=== PATIENT | female | born 1965 | race Caucasian/White ===

== ENCOUNTER 2018-12-20 10:35 | Observation (INO) | payer OTHER ==
[~2018-12-20] VITALS: Ht 157.5 cm; Wt 90.9 kg
--- NOTE | ~2018-12-20 | HEMODYNAMI ---
PATIENT:REGINE JEFFERSON MEDICAL RECORD: [id number] : 67 [facility]# [id number] ADMISSION DATE: 12/20/18 Generatedon:12/20/201815:59 Patient name: REGINE JEFFERSON Patient #: [id number] SSN: D OB: 1965 Date of study: 12/20/2018 Page: Of Hemodynamic Procedure Report Patient Data Patient Demographics Procedure consent was obtained First Name: REGINE Gender: Female Last Name: RONNY : 1965 Middle Initial: MARIA EUGENIA Age: 53 year(s) Patient #: [id number] Race: Unknown Additional ID: [id number] Contact details Address: [address] [place] [address] State: [place]: [facility] [place] Zip code: [address] Past Medical History Allergies Allergen Reaction Date Comments Reported Other allergy 12/20/2018 Doxycycline, detorolac, levofloxacin Admission Admission Data Admission Date: 12/20/2018 Admission Time: 13:02 Room #: D.E16 Height (in.): 62 BSA: 1.91 (m2) Height (cm.): 157.48 BMI: 36.65 (kg/m2) Weight (lbs.): 200.4 Weight (kg.): 90.9 Lab Results Lab Result Date: 12/20/2018 Lab Result Time: 0:00 Biochemistry Name Units Result Min Max BUN mg/dl 11 --(-*--)-- 7 18 Creatinine mg/dl 0.6 --(*---)-- 0.6 1.3 CBC Name Units Result Min Max Hemoglobin g/dl 14.7 --(-*--)-- 13.5 17.5 Procedure Procedure Types Cath Procedure Diagnostic Procedure [facility] w/Coronaries Procedure Description Procedure Date Procedure Date: 12/20/2018 Procedure Start Time: 15:47 Procedure End Time: 15:58 Procedure Staff Name Function Aric Darden MD Performing Physician Mandy Pierson RT Monitor Kelli Chen RN Nurse Elise Dominique RT Scrub Sruthi Bello RT Scrub Dk Craven RN Lapel Baster Procedure Data Cath Procedure Fluoroscopy Diagnostic fluoroscopy Total fluoroscopy Time: 1.5 time: 1.5 min min Diagnostic fluoroscopy Total fluoroscopy dose: 454 dose: 454 mGy mGy Contrast Material Contrast Material Type Amount (ml) Isovue 300 61 Entry Location Entry Primary Successful Side Size Upsize Upsize Entry Closure [place] ccessful Closure Location (Fr) 1 (Fr) 2 (Fr) Remarks Device Remarks Radial Right 6 Fr Mechanical artery Short Compression Estimated blood loss: 10 ml Diagnostic catheters Device Type Used For End Catheter Placement DIAGNOSTIC Fowler 110cm 5 Procedure Fr catheter ([id number]) Procedure Complications No complications Procedure Medications Medication Administration Route Dosage Oxygen etCO2 Nasal cannula 2 l/min Lidocaine 2% added to field 20 Heparin Flush Bag added to field 2 bags (1000units/500ml NS) 0.9% NaCl I.V. 100 ml/hr Radial Cocktail added to field 1 syringe (Verapomil 2mg/Nitro 400mcg/Heparin 1500units) Versed I.V. 2 mg Fentanyl I.V. 100 mcg Versed I.V. 1 mg Fentanyl I.V. 50 mcg Hemodynamics Rest BSA: 1.91 (m2) HGB: 14.7 (g/dl) O2 Consumption: Estimated: 182.95 (ml/min) O2 Co nsumption indexed: Estimated:95.79 (ml/min/m) Heart Rate: 66 (bpm) Snapshots Pre Cath Intra NCS Post Cath Vital Signs Time Heart Resp SPO2 etCO2 NIBP (mmHg) Rhythm Pain Sedation Rate (ipm) (%) (mmHg) Status Level (bpm) 15:38:10 68 14 100 37.1 148/98(123) NSR 0 (11) 10(A) , No pain 15:42:18 69 15 99 40.9 141/94(108) NSR 0 (11) 10(A) , No pain 15:46:24 75 13 98 43.2 141/92(105) NSR 0 (11) 9(A) , No pain 15:50:34 81 12 93 135/80(103) NSR 0 (11) 9(A) , No pain 15:54:40 79 14 96 134/85(98) NSR 0 (11) 10(A) , No pain Medications Time Medication Route Dose Verified Delivered Reason Notes Effectiveness by by 15:32:50 Oxygen etCO2 2 l/min Aricray Root used for Nasal Adelso Craven RN procedure cannula 15:43:55 Lidocaine 2% added 20ml Aric Corbett for local to vial Adelso Darden MD anesthetic field 15:44:02 Heparin Flush added 2 bags Aric Corbett used for Bag to Adelso Darden MD procedure (1000units/500ml field NS) 15:44:14 0.9% NaCl I.V. 100 Aric Root Per ml/hr Adelso Craven RN physician 15:44:29 Radial Cocktail added 1 Aric Corbett for (Verapomil to syringe Adelso Darden MD vasodilation 2mg/Nitro field 400mcg/Heparin 1500units) 15:44:37 Versed I.V. 2 mg Aric Presleyie for sedation Adelso Craven RN 15:44:43 Fentanyl I.V. 100 mcg Aric Root for sedation Adelso Craven RN 15:49:52 Versed I.V. 1 mg Aric Root for sedation Adelso Craven RN 15:49:56 Fentanyl I.V. 50 mcg Aric Root for sedation Adelso Craven RN Procedure Log Time Note 15:11:55 Lab Result : BUN 11 mg/dl 15:11:55 Lab Result : Hemoglobin 14.7 g/dl 15:11:55 Lab Result : Creatinine 0.6 mg/dl 15:16:24 Patient Height : 62 inches 15:16:31 Patient Weight : 200.4 lbs 15:16:56 Diagnostic Cath status Elective 15:17:15 Mandy STRICKLAND(R) sent for patient. Start room use. 15:17:24 Time tracking: Regular hours (M-F 7:00 - 5:00) 15:17:30 Plan of Care:Hemodynamics will remain stable., Cardiac rhythm will remain stable., Comfort level will be maintained., Respiratory function will remain adequate., Patient/ family verbilizes understanding of procedure., Procedure tolerated without complication., Recovers from procedure without complications.. 15:23:01 Patient received from ED to CCL 2 Alert and oriented. Tansferred to table in Supine position. 15:23:03 Warm blankets applied, and jurgen hugger turned on for patient comfort. 15:23:03 Correct patient and procedure confirmed by team. 15:23:21 Signed procedure consent form obtained from patient. 15:23:22 ECG and BP/O2 sat monitors applied to patient. 15:23:34 H&P Date Dictated: 12/20/2018 Emergent; H&P N/A. 15:27:55 Snore? Yes 15:27:56 Sleep apnea? Yes 15:28:02 Dentures? Yes tight 15:28:04 Deviated septum? No 15:28:15 Airway obstruction? No ? 15:28:20 Pre-procedure instructions explained to patient. 15:28:23 Pre-op teaching completed and patient verbalized understanding. 15:28:26 Family unavailable. 15:28:28 Patient NPO since Midnight. 15:29:38 Patient allergic to Other allergyDoxycycline, detorolac, levofloxacin 15:29:43 Is the patient allergic to Iodine/contrast media? No. 15:29:44 Was the patient premedicated? Yes 15:29:46 Is patient on blood thinner?No 15:29:53 Patient diabetic? No. 15:30:01 Lab results completed and on chart. 15:30:06 Right Radial & Right Groin area was prepped with chlora-prep and draped in sterile fashion 15:30:07 Alarms reviewed by RSuzie N. 15:30:08 Sharps counted by scrub and verified by R.N. 15:30:21 Pre procedure: right dorsailis pedis pulse 2+ Normal; easily identifiable; not easily obliterated 15:32:50 Oxygen 2 l/min etCO2 Nasal cannula was administered by Dk Craven RN; used for procedure; 15:37:07 Vital chart was started 15:37:09 Baseline sample Acquired. 15:37:13 Rhythm: sinus rhythm 15:37:14 Full Disclosure recording started 15:38:25 Physician arrived 15:38:26 --------ALL STOP TIME OUT------ 15:38:27 Final Timeout: patient, procedure, and site verified with staff and physician. All members of the team are in agreement. 15:38:31 Right Radial & Right Groin site verified by team. 15:38:36 Fire Safety Assessment: A--An alcohol-based skin anteseptic being used preoperatively., C--Open oxygen or nitrous oxide is being used., D--An ESU, laser, or fiber-optic light is being used. 15:38:52 Physical assessment completed. ASA score P 2 - A patient with mild systemic disease as per Aric Darden MD. 15:38:56 Sedation plan: IV Moderate Sedation Medication:Versed, Fentanyl 15:39:07 Use device set Radial Dx or PCI 15:39:13 ACIST Syringe (54810) opened to sterile field. 15:39:13 Medline Cath Pack ([id number]) opened to sterile field. 15:39:14 Bag Decanter (2002S) opened to sterile field. 15:39:14 DIAGNOSTIC WIRE .035 260cm J wire (310495) opened to sterile field. 15:39:15 ACIST Hand Control (07158) opened to sterile field. 15:39:15 ACIST Manifold (30285) opened to sterile field. 15:39:16 Tegaderm 4 x 4 (1626W) opened to sterile field. 15:39:17 MBrace Wrist Support ([id number]) opened to sterile field. 15:39:21 SHEATH 6FR Slender (79-5460) opened to sterile field. 15:43:55 Lidocaine 2% 20ml vial added to field was administered by Aric Darden MD; for local anesthetic; 15:44:02 Heparin Flush Bag (1000units/500ml NS) 2 bags added to field was administered by Aric Darden MD; used for procedure; 15:44:14 0.9% NaCl 100 ml/hr I.V. was administered by Dk Craven RN; Per physician; 15:44:29 Radial Cocktail (Verapomil 2mg/Nitro 400mcg/Heparin 1500units) 1 syringe added to field was administered by Aric Darden MD; for vasodilation; 15:44:37 Versed 2 mg I.V. was administered by Dk Craven RN; for sedation; 15:44:43 Fentanyl 100 mcg I.V. was administered by Dk Craven RN; for sedation; 15:46:49 Zero performed for pressure channel P1 15:46:52 Zero performed for pressure channel P1 15:46:56 Zero performed for pressure channel P1 15:47:11 Zero performed for pressure channel P1 15:47:21 Procedure started. 15:47:34 Local anesthetic to right radial artery with Lidocaine 2% by Aric Darden MD.INITIAL ACCESS ONLY 15:47:45 A 6 Fr Short sheath was inserted into the Right Radial artery 15:47:50 J wire advanced. 15:48:00 A DIAGNOSTIC Fowler 110cm 5 Fr catheter ([id number]) was advanced over the wire and used for Procedure. 15:48:08 LV angiography performed. 15:49:35 LV gram done using DAVE 15:49:41 EF : 60 % 15:49:44 LCA angiography performed. 15:49:52 Versed 1 mg I.V. was administered by Dk Craven RN; for sedation; 15:49:56 Fentanyl 50 mcg I.V. was administered by Dk Craven RN; for sedation; 15:50:39 RCA angiography performed. 15:51:45 Catheter removed. 15:54:58 Sheath removed intact; hemostasis achieved with Mechanical Compression to the Right Radial artery. 15:55:10 TR BAND Standard ([id number]) opened to sterile field. 15:55:11 Procedure ended.(Physican Out) 15:55:26 Fluoroscopy time 01.50 minutes. 15:56:12 Fluoroscopy dose: 454 mGy 15:56:12 Flurop Dose total: 454 15:56:18 Contrast amount:Isovue 300 61ml. 15:56:19 Sharps counted by scrub and verified by R.N. 15:56:25 TR band inflated with 13cc of air. 15:56:39 Insertion/operative site no bleeding no hematoma. 15:56:48 Post right radial artery:stable 15:56:58 Post Procedure Pulses reassessed and unchanged 15:57:08 Post-procedure physical assessment completed. ASA score P 2 - A patient with mild systemic disease as per Aric Darden MD. 15:57:11 Post procedure rhythm: unchanged. 15:57:15 Estimated blood loss: 10 ml 15:57:17 Post procedure instruction explained to patient.Patient verbalizes understanding. 15:57:32 Procedure and supply charges have been captured, reviewed, submitted and are correct. 15:58:03 Procedure Complication : No complications 15:58:06 Vital chart was stopped 15:58:06 See physician's report for complete and final results. 15:58:08 Report given to Pre/Post Procedure Room. 15:58:13 Patient transfered to Pre/Post Procedure Room with Stretcher. 15:58:15 Procedure ended. 15:58:15 Full Disclosure recording stopped 15:58:18 End room use (Document Last) Device Usage Item Name Manufacture Quantity Catalog Hospital Part Current Minimal Lot# / Number Charge Number Stock Stock Serial# Code ACIST Acist 1 64650 275449 771241 876366 20 Syringe Medical (36741) Systems Inc Medline Medline 1 [id number] 931466 33008 032704 5 Cath Pack ([id number]) Bag Microtek 1 2001S 277991 96936 599299 5 Decanter Medical Inc. (2001S) DIAGNOSTIC [place] 1 121181 095417 038751 880264 30 WIRE .035 260cm J wire (141980) ACIST Hand Acist 1 66044 135130 695242 840401 5 Control Medical (30431) Systems Inc ACIST Acist 1 11681 112131 202257 012498 5 Manifold Medical (18956) Systems Inc Tegaderm 4 3M 1 1626W 455389 227698 932400 5 x 4 (1626W) MBrace Advanced 1 140-0250-00 181506 46450 738498 5 Wrist Vascular Support Dynamics ([id number]) SHEATH 6FR Terumo 1 [id number] 015680 243166 974634 5 Slender (80-1060) DIAGNOSTIC Terumo 1 40-3958 264884 941920 599870 5 Fowler 110cm 5 Fr catheter (017137) TR BAND Terumo 1 [id number] 609823 871136 441034 40 Standard ([id number]) Signature Audit [place] Stage Time Signature Unsigned Intra-Procedure 12/20/2018 Mandy Pierson 3:58:57 PM RT(R) Signatures Monitor : Mandy Pierson Signature : RT Date : Time : [facility] [address] [place] [address]
[2018-12-20 10:42] VITALS: Ht 157.5 cm; Wt 90.9 kg
--- NOTE | 2018-12-20 10:58 | NUR ---
BLOOD OBTAINED UPON IV START AND SENT TO LAB AT THIS TIME.
[2018-12-20 11:09] LABS: APTT 26.2 SECONDS (22.8-39.4); INR 0.99 (0.85-1.17); PROTIME 12.6 SECONDS (11.6-15.0)
[2018-12-20 11:16] LABS: ALBUMIN 3.3 g/dL (3.4-5.0); ALKALINE PHOSPHATASE 118 U/L (46-116); ALT (SGPT) 24 U/L (10-68); BILIRUBIN - TOTAL 0.19 mg/dL (0.2-1.3); CALC OSMOLALITY 277 mosm/kg (275-300); CALCIUM 9.7 mg/dL (8.5-10.1); CARBON DIOXIDE 27.8 mmol/L (21.0-32.0); CHLORIDE - SERUM 104 mmol/L (98-107); CREATININE - SERUM 0.6 mg/dL (0.6-1.3); GLUCOSE 100 mg/dL (74-106); POTASSIUM - SERUM 4.1 mmol/L (3.5-5.1); PROTEIN - SERUM 7.4 g/dL (6.4-8.2); SODIUM 140 mmol/L (136-145); UREA NITROGEN 11 mg/dL (7-18); eGFR NON AFRICAN AMERICAN > 90 mL/min (90-120)
[2018-12-20 11:18] LABS: BASOPHILS 0.2 % (0-2); EOSINOPHILS 2.5 % (0-7); HEMATOCRIT 43.2 % (36.0-48.0); HEMOGLOBIN 14.7 g/dL (12-16); IMMATURE GRANULOCYTES 0.5 % (0-5); LYMPHOCYTES 30.7 % (15-50); MCH 32.5 pg (26.0-34.0); MCV 95.4 fL (80.0-100.0); MEAN PLATELET VOLUME 10.3 fL (7.4-10.4); MONOCYTES 5.6 % (2-11); NEUTROPHILS 60.5 % (40-80); RBC 4.53 10x6/uL (4.00-5.40); RDW 12.8 % (11.5-14.5); WBC 8.8 10x3/uL (4.8-10.8)
[2018-12-20 11:22] LABS: PLATELET COUNT 214 10x3/uL (130-400)
[2018-12-20 11:28] LABS: CKMB 0.5 U/L (0.0-3.6); CREATINE KINASE 36 UL (21-215); MAGNESIUM - SERUM 2.1 mg/dL (1.8-2.4); TROPONIN-I < 0.017 ng/mL (0.000-0.060)
--- NOTE | 2018-12-20 12:30 | NUR ---
DR. BRADY AT BEDSIDE AT THIS TIME.
[2018-12-20 13:30] VITALS: BP 128/58
[2018-12-20 14:00] VITALS: BP 129/88
[2018-12-20 15:00] VITALS: BP 144/76
--- NOTE | 2018-12-20 15:15 | NUR ---
PT TO DIRECTOR OF PUBLIC RELATIONS AT THIS TIME.
[2018-12-20 15:33] VITALS: BP 122/84
--- NOTE | 2018-12-20 16:05 | NUR ---
PT RECEIVED VIA STRETCHER FROM [employer] DIVISION MANAGER FOR RECOVERY. PT SLEEPING BUT AROUSES TO VERBAL STIMULI. TR BAND AND IMMOBILIZER TO R WRIST, DRESSING CDI NO BLEEDING OR SWELLING NOTED. CAP REFILL BRISK. HR NSR RATE 73, BP 122/84, 02 SAT 94 ON ROOM AIR, O2 PLACED AT 1L/NC. CALL LIGHT IN REACH.
--- NOTE | 2018-12-20 16:25 | NUR ---
PT REMAINS SLEEPING W EYES CLOSED, TR BAND AND IMMOBILIZER IN PLACE, DRESSING CDI NO BLEEDING OR SWELLING. CALL LIGHT IN REACH, DENIES PAIN OR DISCOMFORT.
--- NOTE | 2018-12-20 16:40 | NUR ---
PT MORE AWAKE, REQUESTING SOMETHING TO EAT AND DRINK, SANDWICH AND COLA GIVEN. TR BAND DRESSING REMAINS CDI NO BLEEDING OR SWELLING NOTED. FAMILY AT BEDSIDE, CALL LIGHT IN REACH.
--- NOTE | 2018-12-20 17:02 | NUR ---
DR BRADY IN ROOM AND SPOKE W PATIENT REGARDING RESULTS OF CATH AND PLAN OF CARE. TR BAND AND IMMOBILIZER IN PLACE DRESSING REMAINS CDI NO BLEEDING OR SWELLING NOTED. PT INSTRUCTED SHE WILL NEED A RIDE HOME SHE DROVE HERSELF HERE TO THE ER. SHE CALLED A FRIEND THAT WILL BE PICKING HER UP. CALL LIGHT IN REACH
--- NOTE | 2018-12-20 17:20 | NUR ---
4 CC AIR REMOVED FROM TR BAND, NO BLEEDING OR SWELLING NOTED. PT VOIDED MOD AMOUNT OF CLEAR URIN IN BEDPAN. PT REPOSITIONED FOR COMFORT. DENIES PAIN OR NEEDS. CALL LIGHT IN REACH
--- NOTE | 2018-12-20 17:50 | NUR ---
IV REMOVED W CATH INTACT, MONITORS AND O2 REMOVED. DISCHARGE TEACHING COMPLETED, PT VERBALIZED UNDERSTANDING. PT UP TO DRESS FOR DISCHARGE.
--- NOTE | 2018-12-20 18:10 | NUR ---
REMAINING AIR REMOVED FROM TR BAND, NO BLEEDING OR SWELLING NOTED. 2X2 AND TEGADERM DRESSING APPLIED. PT DISCHARGED TO PRIVATE VEHICLE VIA .
--- NOTE | 2018-12-21 11:19 | CN ---
PATIENT NAME:REGINE JEFFERSON MEDICAL RECORD: [id number] : 67 LOCATION:[facility] ADMIT DATE: 12/20/18 ACCOUNT: [id number] CONSULTING PHYSICIAN: BAL BRADY MD REFERRING PHYSICIAN: BAL BRADY MD DATE OF CONSULTATION: 12/20/2018 DIAGNOSES: 1. Chest pain. 2. Hypertension. 3. Family history of coronary artery disease. HISTORY OF PRESENT ILLNESS: Mrs. Jefferson presents with new onset chest discomfort. She is very uncomfortable. She has quite severe chest discomfort, it is in the middle of the chest radiating to her right jaw area. PHYSICAL EXAMINATION: GENERAL APPEARANCE: Well-nourished, well-developed, appears stated age. Level of distress, comfortable. PSYCHIATRIC: Mental status, alert, normal affect. Orientation, oriented to time, place and person. EYES: Lids and conjunctiva, noninjected. No discharge, no pallor. ENT: Lips, teeth, gums, normal dentition. Oropharynx, no cyanosis, no pallor. NECK: Carotid arteries, bilateral normal upstroke, no bruits, no thrills. JUGULAR VEINS: No jugular venous pressure or distention. CERVICAL LYMPH NODES: Nontender, nonenlarged. THYROID: Not enlarged. Nontender. No nodules. LUNGS: Respiratory effort, unlabored. CHEST: Normal curvature. No thoracic deformity. No chest wall tenderness. Percussion, resonant. Auscultation, clear. No wheezes, no rales, no rhonchi. CARDIOVASCULAR: Precordial exam, nondisplaced. No heaves or pericardial thrills. Rate and rhythm, regular. Heart sounds, normal S1, normal S2. No S3, no gallop, no rub. Systolic murmur, not heard. Diastolic murmur, not heard. EXTREMITIES: No cyanosis, no edema. Peripheral pulses, full and equal in all extremities, except as noted. No bruits appreciated. ABDOMEN: Soft, nondistended. Normal aorta. No bruit. Nontender. No masses. Liver, nontender, no hepatomegaly. Spleen, nontender, no splenomegaly. MUSCULOSKELETAL: No joint tenderness. No joint swelling. No erythema. NEUROLOGICAL: Normal gait, normal strength, normal tone. SKIN: Warm and dry. OVERALL IMPRESSION: She has no acute EKG changes. Her troponins are pending, but she is very uncomfortable with the chest pain. We will give her sublingual nitro to see if this relieves the pain, otherwise morphine. Further care depends upon the results with that and her laboratory values. TRANSINT:[id number] Voice Confirmation ID: [id number] DOCUMENT ID: [id number] CONSULT REPORT [id number] REGINE JEFFERSON JEFFREY MD at 1119 CC: [id number] DICTATION DATE: 12/20/18 1247 WELDING PROCESS ENGINEER: 12/20/18 1309 DIS IN 12/20/18 [facility] [address] [place] [address]
--- NOTE | 2018-12-21 11:19 | OP ---
PATIENT NAME: REGINE JEFFERSON MEDICAL RECORD: [id number] :67 LOCATION:[facility] ADMISSION DATE:12/20/18 SURGEON: BAL BRADY MD DATE OF OPERATION: 12/20/2018 PROCEDURES: 1. Left heart catheterization. 2. Selective coronary angiography. 3. Left ventriculogram. INDICATION: Chest pain compatible with angina. PROCEDURE IN DETAIL: After informed consent was obtained and after a detailed description of the risks, benefits as well as alternative therapies, the patient elected to proceed with angiogram and heart catheterization. The right radial area was prepped and draped in normal sterile fashion. Right radial artery was cannulated via modified Seldinger technique with placement of 5-Mohawk sheath. All catheters exchanged through this sheath. FINDINGS: The left ventriculogram was performed in standard 30-degree DAVE view, reveals good cardiac wall motion throughout all segments. Overall ejection fraction is 55% to 60%. SELECTIVE CORONARY ANGIOGRAPHY: Left main, left anterior descending, left circumflex, right coronary artery are all smooth-walled vessels with no angiographic evidence of coronary artery disease. OVERALL IMPRESSION: 1. No angiographic evidence of coronary artery disease. 2. Normal left heart pressures. 3. Normal left ventricular systolic function. Chest pain is noncardiac in etiology. No further cardiac workup needs to be ascertained. TRANSINT:[id number] Voice Confirmation ID: [id number] DOCUMENT ID: [id number] BAL BRADY MD at 1119 CC: [id number] DICTATION DATE: 12/20/18 1557 BLOCK TRIMMER: 12/20/18 1659 DIS IN 12/20/18 [id number] [place] [address]
== END 2018-12-20 18:15 | disposition home or self-care (01) ==
LOC: D.ER 10:35 → D.EDHOLD 13:02 → OBSVTIME 13:03 → D.EDHOLD 14:40 → D.CLR 16:00
PROVIDERS: Emergency Medicine; ADMIT Internal Medicine Interventional Cardiology
DX: R07.89 Other chest pain (principal); I10 Essential (primary) hypertension; Z82.49 Family history of ischemic heart disease and other diseases of the circulatory system

== ENCOUNTER → 2020-02-13 | Emergency (ER) | payer OTHER ==
[~2020-02-13] VITALS: Ht 157.5 cm; Wt 90.7 kg
[2020-02-13 01:34] VITALS: BP 154/91; Ht 157.5 cm; Wt 90.7 kg
== END | disposition home or self-care (01) ==
LOC: D.ER 01:29
DX: S93.402A Sprain of unspecified ligament of left ankle, initial encounter (principal); I10 Essential (primary) hypertension; K21.9 Gastro-esophageal reflux disease without esophagitis

== ENCOUNTER 2020-07-10 17:44 | Emergency (ER) | payer OTHER ==
[~2020-07-10] VITALS: Ht 157.5 cm; Wt 90.9 kg
[2020-07-10 18:08] VITALS: Ht 157.5 cm; Wt 90.9 kg
[2020-07-10] MEDS ORDERED: KLONOPIN0.5 MG PO (18:10)
[2020-07-10] MEDS ORDERED: LISINOPRIL10 MG PO (18:10)
[2020-07-10] MEDS ORDERED: MOBIC7.5 MG PO (18:10)
[2020-07-10] MEDS ORDERED: OMEPRAZOLE20 M1 PO (18:11)
[2020-07-10] MEDS ORDERED: CYCLOBENZAPRINE10 MG PO ×3 (22:41→22:45)
[2020-07-10] MEDS ORDERED: NORCO 7.5-3251 EACH GT (22:41)
[2020-07-10 22:57] VITALS: BP 139/87
== END 2020-07-10 22:57 | disposition home or self-care (01) ==
LOC: D.ER 17:44
DX: S39.012A Strain of muscle, fascia and tendon of lower back, initial encounter (principal); V89.2XXA Person injured in unspecified motor-vehicle accident, traffic, initial encounter; M51.36 Other intervertebral disc degeneration, lumbar region; I10 Essential (primary) hypertension